=== PATIENT | female | born 1950 | race Caucasian/White ===

== ENCOUNTER → 2016-07-16 | Outpatient (REF) | payer MEDICARE ==
[~2016-07-16] MED LIST: ALEVE; GLUC500T; INSULIN; LABE100T2; POTA20TA2; PRIL40CA; PRIN5TAB; magnesium oxide
[2016-07-16 19:12] LABS: FERRITIN 49 NG/ML (8-252); PERCENT SATURATION 18.5 % (13.2-37.4); TOTAL IRON BINDING CAPACITY 383 UG/DL (250-450); TOTAL PROTEIN 6.8 GM/DL (6.4-8.2)
[2016-07-20 11:56] LABS: ALBUMIN % 60.9 % (55.8-66.1)
[2016-07-20 11:57] LABS: ALBUMIN 4.14 GM/DL (3.29-5.55)
== END ==
LOC: M LAB REF 17:03
PROVIDERS: ATTEND Internal Medicine Nephrology
DX: D50.9 Iron deficiency anemia, unspecified (principal); E83.52 Hypercalcemia

== ENCOUNTER → 2016-07-23 | Outpatient (REF) | payer MEDICARE | LOC: M LABDRAW1 11:47 | PROVIDERS: ATTEND Internal Medicine Nephrology | DX: D50.9 Iron deficiency anemia, unspecified (principal); E83.52 Hypercalcemia ==

== ENCOUNTER → 2016-07-27 | Outpatient (CLI) | payer MEDICARE ==
--- NOTE | 2016-07-27 13:47 | REP ---
BILATERAL RENAL ULTRASOUND COMPLETE: 07/27/2016. Comparison: CT with contrast 07/31/2010. Clinical history: Chronic kidney disease stage III moderate, type 2 diabetes. Hypercalcemia. Findings: The pre-void bladder volume measurement is 60 ml measuring 5.5 x 5.9 x 4.0 cm diameter. Ureteral jets could not be observed. No gross abnormality. Right kidney 9.6 x 5.6 x 4.8 cm. Cortical thinning is noted but cortical echogenicity normal. There is sinus lipomatosis. No hydronephrosis, hydroureter, stone, mass or cyst. Some calcified renal vessels noted. The left kidney showed a column of Marco A. It measures 9.9 x 4.5 x 4.3 cm and has normal cortical echogenicity and thickness. Some lobulations of the cortical contour noted. Sinus lipomatosis without hydroureter or hydronephrosis. No mass, cyst or stone. There were calcifications in artery vessels. The subcapsular hematoma noted on the trauma CT 6 years ago is resolved with some minimal cortical atrophy and lobation as a result. Impression: 1. Bilateral thinning of the cortex and sinus lipomatosis with mild renal atrophy. Cortical echogenicity intact. 2. Small amount of cortical lobulation of the lateral aspect of the left kidney likely result of the subcapsular hematoma and trauma/laceration in the 2011 CT scan post trauma. 3. No hydronephrosis, hydroureter, stone, mass or cyst. 4. Bladder very limited in evaluation. Signed by Lavelle Merida MD 07/27/2016 05:41 P
--- NOTE | 2016-07-27 16:59 | REP ---
NUCLEAR PARATHYROID SCAN: 07/27/2016. Clinical history: Chronic kidney disease, stage III, hyperparathyroidism, possible parathyroid adenoma. Technique: The patient received 25.1 mCi of technetium 99m sestamibi with 15-minute anterior and bilateral oblique anterior images and three-hour delayed images in the same projections. Also SPECT imaging with axial, sagittal and coronal images sets reviewed for their tomographic sections as well as the raw data images on CINE display. Findings: Symmetric uptake of Sestamibi on the 15-minute images in the submandibular glands and bilateral thyroid lobes. On the delayed images, there is loss of most of the uptake in the thyroid except for the lower pole of the left lobe. Submandibular gland uptake is unchanged. The overall thyroid uptake is otherwise much diminished. The tomographic SPECT images and source images confirm. Impression: 1. Findings most consistent with a parathyroid adenoma showing persistent tracer uptake in the lower pole left lobe of the thyroid gland on delayed images. Signed by Lavelle Merida MD 07/27/2016 05:50 P
== END ==
LOC: M RAD 09:17
PROVIDERS: ATTEND Internal Medicine Nephrology
DX: E11.22 Type 2 diabetes mellitus with diabetic chronic kidney disease (principal); N18.3 Chronic kidney disease, stage 3 (moderate); E21.2 Other hyperparathyroidism; N28.9 Disorder of kidney and ureter, unspecified
CPT/HCPCS: 76775; 78070; 78803; A9500

== ENCOUNTER → 2016-08-20 | Outpatient (REF) | payer MEDICARE ==
[2016-08-20 12:00] LABS: ALBUMIN 3.5 GM/DL (3.2-5.2); ALBUMIN/GLOBULIN RATIO 1.21 (1.00-1.93); ALKALINE PHOSPHATASE 40 U/L (45-117); ALT/SGPT 19 U/L (12-78); ANION GAP 5 MEQ/L (8-16); AST/SGOT 12 U/L (15-37); BILIRUBIN,TOTAL 0.3 MG/DL (0.2-1.0); BLOOD UREA NITROGEN 25 MG/DL (7-18); CALCIUM LEVEL 10.2 MG/DL (8.8-10.2); CARBON DIOXIDE LEVEL 33 MEQ/L (21-32); CHLORIDE LEVEL 105 MEQ/L (98-107); CREATININE FOR GFR 0.95 MG/DL (0.55-1.02); GLOMERULAR FILTRATION RATE > 60.0 (>45); GLUCOSE, FASTING 105 MG/DL (80-110); POTASSIUM SERUM 4.6 MEQ/L (3.5-5.1); SODIUM LEVEL 143 MEQ/L (136-145); TOTAL PROTEIN 6.4 GM/DL (6.4-8.2)
== END ==
LOC: M SFHCPLAZ 10:19
PROVIDERS: ATTEND Nurse Practitioner Family
DX: I10 Essential (primary) hypertension (principal); E55.9 Vitamin D deficiency, unspecified

== ENCOUNTER 2016-12-16 09:50 | Day surgery (SDC) | payer MEDICARE ==
[~2016-12-16] VITALS: Ht 152.4 cm; Wt 70.3 kg
[~2016-12-16 09:50] MED LIST changes: +ACETAMINOPHEN 325 MG TAB PO PRN; +ASPI81TA85 PO; +ATEN25TA PO; +BSS with VANC/TOB/EPI for EYE CASES IR ONE; +CEFUROXIME 1MG/0.1ML INTRACAMERAL INJ As Ordered ONE; +CINA30TA PO; +CYCLOPENTOLATE 2% OPHTH SOLN 2ML BTL OD ONE; +GLIM2TAB PO; +HEALON DUET (HEALON 10MG/ML 0.55ML & HEALON ENDOCOAT 30MG/ML 0.85ML) As Ordered ONE; +LIDOCAINE 1% SDV 5 ML VIAL As Ordered ONE; +LIDOCAINE 3.5 % 1ML OPHTH TOPICAL GEL OU ONE; +LISI-538 PO; +MAGN64TASA PO; +METF10004 PO; +OFLOXACIN 0.3 % (OCUFLOX) OPTH SOL 5ML OD ONE; +PHENYLEPHRINE 2.5% OPHTH SOL 2ML OD ONE; +POVIDONE-IODINE 5% OPHTH PREP SOL 30ML As Ordered ONE; +PROPARACAINE 0.5% OPHTH SOL 15ML OD PRN; +SIMV40TA2 PO; +TRAD5TAB PO; +TROPICAMIDE 1% OPHTH SOLN 2ML OD ONE
[2016-12-16] MEDS ORDERED: LR 1,000 ML IV ONE (10:15)
[2016-12-16] MEDS ORDERED: LIDOCAINE 1% MDV 20ML VIAL SC PRN (10:30)
[2016-12-16] MEDS ORDERED: MIDAZOLAM INJ 2 MG/2 ML VIAL (J2250) As Ordered ONE (11:06)
[2016-12-16] MEDS ORDERED: fentaNYL 100 MCG/2 ML INJECTION (J3010) As Ordered ONE (11:07)
[2016-12-16] MEDS ORDERED: TRIAMCINOLONE PRES FR 40 MG/ML 1ML(TRIESENCE)(OR EYE ONLY)(J3300 PER 1MG) As Ordered ONE (11:36)
[2016-12-16] MEDS ORDERED: MOXIFLOXACIN IN BSS 0.25MG/0.25ML INTRACAMERAL INJ (OR EYE ONLY)(J2280) As Ordered ONE (11:36)
[2016-12-16] MEDS ORDERED: BALANCED SALT IRRIGATION SOLUTION 500ML BAG (FOR OR EYE MACHINE) As Ordered ONE (11:45)
[2016-12-16] MEDS ORDERED: ACETYLCHOLINE OPHTH SOLN 1% 2ML (MIOCHOL-E) As Ordered ONE (11:48)
[2016-12-16] MEDS ORDERED: KETOROLAC 0.5% OPHTH SOLN OD ONE (12:30)
[2016-12-16] MEDS ORDERED: TRIMETHOBENZAMIDE 300 MG CAP PO PRN (12:30)
[2016-12-16] MEDS ORDERED: AcetaZOLAMIDE 500 MG ER CAP PO ONE (12:30)
[2016-12-16 12:55] VITALS: BP 189/79
--- NOTE | 2016-12-18 10:08 | RO ---
DATE OF PROCEDURE: 12/16/2016 PREPROCEDURE DIAGNOSIS: POSTPROCEDURE DIAGNOSIS: PROCEDURE: Femtosecond laser with phacoemulsification intraocular lens implantation and anterior vitrectomy. Placement of the Malyugin ring. SURGEON: Dr. Bren Allred. COURT SPECIALIST: None. ANESTHESIA: DESCRIPTION OF PROCEDURE: The patient was first brought to the laser room after the eye was prepped and draped. Patient interface was placed and after adequate suction, the laser was activated for the OCT images. After the images were reviewed, the laser was activated and the capsulorrhexis lens fragmentation primary and secondary corneal incisions and arcuate incisions were made according to plan. After the above, the suction was released. Patient interface removed and the patient was brought to the operating room and laid in the supine position. The eye was prepped and draped in a sterile fashion for ophthalmic surgery and a lid speculum was placed. All the incisions were opened including the arcuate primary and secondary incisions. Entocort was injected into the anterior chamber and the capsulorrhexis removed. The phacoemulsification was then started and patient's pupil constricted. At this point using the Healon to separate the capsule and the iris, the Malyugin ring 7 mm was placed without any complications. It was noted the patient's cataract was 4+ sclerotic. Even after the femtosecond laser it was very difficult to divide the lens and during the division it was noted that part of the lens had tilted posteriorly at this time. The phacoemulsification was stopped. An attempt was made to elevate the nucleus into the anterior chamber but this was not successful. After partial phacoemulsification a chunk of the nucleus was noted to be hanging in the anterior vitreous. At this point, it was decided to do a partial anterior vitrectomy and place the [id number] power, 18 diopter in the sulcus. This ws done without an effort and a #10-0 nylon suture was used to close the clear corneal incision after aspiration of the viscoelastic. Miochol was used and the pupil was nice and round. The case was discussed in great detail with the patient as it was even before the surgery. The lid speculum was removed before the patient was sent to the recovery room. The patient was then referred to the Retinal Vitreous for evaluation and treatment.
== END 2016-12-16 12:56 | disposition home or self-care (01) ==
LOC: M SDC 09:50
PROVIDERS: ATTEND Ophthalmology
DX: H25.9 Unspecified age-related cataract (principal); E11.9 Type 2 diabetes mellitus without complications; I10 Essential (primary) hypertension; E78.5 Hyperlipidemia, unspecified; E21.3 Hyperparathyroidism, unspecified; Z87.891 Personal history of nicotine dependence; Z79.82 Long term (current) use of aspirin; Z79.899 Other long term (current) drug therapy
CPT/HCPCS: 66982; J2250; J2280; J3010; J3300; V2632

== ENCOUNTER 2017-07-07 09:48 | Day surgery (SDC) | payer MEDICARE ==
[~2017-07-07 09:48] MED LIST changes: +ACETAMINOPHEN 325 MG TAB PO; -ACETAMINOPHEN 325 MG TAB PO PRN; -ALEVE; -ASPI81TA85 PO; -ATEN25TA PO; -BSS with VANC/TOB/EPI for EYE CASES IR ONE; -CEFUROXIME 1MG/0.1ML INTRACAMERAL INJ As Ordered ONE; -CINA30TA PO; -CYCLOPENTOLATE 2% OPHTH SOLN 2ML BTL OD ONE; -GLIM2TAB PO; -GLUC500T; -HEALON DUET (HEALON 10MG/ML 0.55ML & HEALON ENDOCOAT 30MG/ML 0.85ML) As Ordered ONE; -INSULIN; -LABE100T2; -LIDOCAINE 1% SDV 5 ML VIAL As Ordered ONE; -LIDOCAINE 3.5 % 1ML OPHTH TOPICAL GEL OU ONE; -LISI-538 PO; -MAGN64TASA PO; -METF10004 PO; -OFLOXACIN 0.3 % (OCUFLOX) OPTH SOL 5ML OD ONE; -PHENYLEPHRINE 2.5% OPHTH SOL 2ML OD ONE; +PHENYLEPHRINE HCL 10 % OPHTH. SOL 5ML OS; -POTA20TA2; -POVIDONE-IODINE 5% OPHTH PREP SOL 30ML As Ordered ONE; -PRIL40CA; -PRIN5TAB; -PROPARACAINE 0.5% OPHTH SOL 15ML OD PRN; +PROPARACAINE 0.5% OPHTH SOL 15ML OS; -SIMV40TA2 PO; -TRAD5TAB PO; -TROPICAMIDE 1% OPHTH SOLN 2ML OD ONE; -magnesium oxide
[2017-07-07] MEDS: CYCLOPENTOLATE 2% OPHTH SOLN 2ML BTL OS (10:05)
[2017-07-07] MEDS: LIDOCAINE 3.5 % 1ML OPHTH TOPICAL GEL OU (10:05)
[2017-07-07] MEDS: PHENYLEPHRINE 2.5% OPHTH SOL 2ML OS (10:05)
[2017-07-07] MEDS: TROPICAMIDE 1% OPHTH SOLN 2ML OS (10:10)
[2017-07-07] MEDS ORDERED: LIDOCAINE 1% MDV 20ML VIAL SQ (10:15)
[2017-07-07] MEDS: OFLOXACIN 0.3 % (OCUFLOX) OPTH SOL 5ML OS (10:15)
[2017-07-07] MEDS ORDERED: fentaNYL 100 MCG/2 ML INJECTION (J3010) As Ordered (10:25)
[2017-07-07] MEDS ORDERED: MIDAZOLAM INJ 2 MG/2 ML VIAL (J2250) As Ordered (10:25)
[2017-07-07 10:30] LABS: BEDSIDE GLUCOSE 83 MG/DL (80-115)
[2017-07-07] MEDS: POVIDONE-IODINE 5% OPHTH PREP SOL 30ML As Ordered (11:39)
[2017-07-07] MEDS: BSS with VANC/TOB/EPI for EYE CASES IR (11:43)
[2017-07-07] MEDS: MOXIFLOXACIN IN BSS 0.25MG/0.25ML INTRACAMERAL INJ (OR EYE ONLY)(J2280) As Ordered (11:43)
[2017-07-07] MEDS: LIDOCAINE 1% SDV 5 ML VIAL As Ordered (11:43)
[2017-07-07] MEDS: HEALON DUET (HEALON 10MG/ML 0.55ML & HEALON ENDOCOAT 30MG/ML 0.85ML) As Ordered (11:43)
[2017-07-07] MEDS: TRIAMCINOLONE PRES FR 40 MG/ML 1ML(TRIESENCE)(OR EYE ONLY)(J3300 PER 1MG) As Ordered (11:43)
[2017-07-07] MEDS ORDERED: KETOROLAC 0.5% OPHTH SOLN OS (12:00)
[2017-07-07] MEDS ORDERED: TRIMETHOBENZAMIDE 300 MG CAP PO (12:00)
[2017-07-07] MEDS: AcetaZOLAMIDE 500 MG ER CAP PO (12:30)
== END 2017-07-07 12:46 | disposition home or self-care (01) ==
LOC: M SDC 09:48
DX: H26.9 Unspecified cataract (principal); E78.00 Pure hypercholesterolemia, unspecified; E11.9 Type 2 diabetes mellitus without complications; I10 Essential (primary) hypertension; Z79.899 Other long term (current) drug therapy; Z79.84 Long term (current) use of oral hypoglycemic drugs; Z79.82 Long term (current) use of aspirin; Z87.81 Personal history of (healed) traumatic fracture
CPT/HCPCS: 66984

== ENCOUNTER → 2018-03-11 | Outpatient (CLI) | payer MEDICARE ==
[2018-03-11 12:47] LABS: CHOLESTEROL LEVEL 182 MG/DL (<200); HDL CHOLESTEROL 56 MG/DL (>40); LDL CHOLESTEROL 100 MG/DL (<100); NON-HDL-C 126 MG/DL; TRIGLYCERIDES LEVEL 129 MG/DL (<150)
== END ==
LOC: M WUC 09:13
DX: E78.00 Pure hypercholesterolemia, unspecified (principal)
CPT/HCPCS: 80061

== ENCOUNTER → 2019-02-17 | Outpatient (CLI) | payer MEDICARE ==
[~2019-02-17] MED LIST changes: -ACETAMINOPHEN 325 MG TAB PO; +ALEVE; +AMLO5TAB6 PO; +ASPI81TA85 PO; +ATEN25TA PO; +CINA30TA4 PO; +GLIM2TAB2 PO; +GLUC500T; +INSULIN; +LABE100T2; +LISI-538 PO; +LOPR1TAB6 PO; +MAGN64TASA PO; +METF10004 PO; +MULT1TAB10 PO; +ONGL1TAB9 PO; -PHENYLEPHRINE HCL 10 % OPHTH. SOL 5ML OS; +POTA20TA2; +PRIL40CA; +PRIN5TAB; -PROPARACAINE 0.5% OPHTH SOL 15ML OS; +SIMV40TA2 PO; +TRAD5TAB PO; +magnesium oxide
[2019-02-17 11:46] LABS: ALBUMIN 3.5 GM/DL (3.2-5.2); BILIRUBIN,TOTAL 0.3 MG/DL (0.2-1.0); CHOLESTEROL RISK RATIO 2.89 (<5); GLOMERULAR FILTRATION RATE 58.7 (>45); POTASSIUM SERUM 4.8 MEQ/L (3.5-5.1); TOTAL PROTEIN 6.5 GM/DL (6.4-8.2)
== END ==
LOC: M WUC 08:45
PROVIDERS: ATTEND Nurse Practitioner Family
DX: E78.2 Mixed hyperlipidemia (principal)

== ENCOUNTER → 2020-01-26 | Outpatient (CLI) | payer MEDICARE ==
[~2020-01-26] MED LIST changes: +AMLO1TAB24 PO; -AMLO5TAB6 PO; -ASPI81TA85 PO; +ASPI81TA86 PO; -GLIM2TAB2 PO; +GLIM2TAB4 PO; -SIMV40TA2 PO; +SIMV40TA20 PO
[2020-01-26 12:10] LABS: ALBUMIN 3.4 GM/DL (3.2-5.2); ALT/SGPT 19 U/L (12-78); BILIRUBIN,TOTAL 0.4 MG/DL (0.2-1.0); BLOOD UREA NITROGEN 19 MG/DL (7-18); CARBON DIOXIDE LEVEL 30 MEQ/L (21-32); CHLORIDE LEVEL 106 MEQ/L (98-107); CHOLESTEROL LEVEL 197 MG/DL (<200); CHOLESTEROL RISK RATIO 3.177 (<5); CREATININE FOR GFR 0.94 MG/DL (0.55-1.30); GLOMERULAR FILTRATION RATE > 60.0 (>45); GLUCOSE, FASTING 154 MG/DL (70-100); HDL CHOLESTEROL 62 MG/DL (>40); LDL CHOLESTEROL 110 MG/DL (<100); NON-HDL-C 135 MG/DL; POTASSIUM SERUM 4.6 MEQ/L (3.5-5.1); SODIUM LEVEL 140 MEQ/L (136-145); TOTAL PROTEIN 6.4 GM/DL (6.4-8.2); TRIGLYCERIDES LEVEL 125 MG/DL (<150)
== END ==
LOC: M WUC 08:39
PROVIDERS: ATTEND Nurse Practitioner Family
DX: I12.9 Hypertensive chronic kidney disease with stage 1 through stage 4 chronic kidney disease, or unspecified chronic kidney disease (principal); E78.2 Mixed hyperlipidemia

== ENCOUNTER → 2020-09-05 | Outpatient (REF) | payer MEDICARE ==
[~2020-09-05] MED LIST changes: -LISI-538 PO; +LISI20TA33 PO
[2020-09-05 18:31] LABS: MALB URINE SIEMENS 7.3 MG/L
== END ==
LOC: M LAB REF 17:02
PROVIDERS: ATTEND Nurse Practitioner Family
DX: E11.9 Type 2 diabetes mellitus without complications (principal)

== ENCOUNTER → 2021-02-06 | Outpatient (CLI) | payer MEDICARE ==
[2021-02-06 13:55] LABS: ALBUMIN 3.4 GM/DL (3.2-5.2); BILIRUBIN,TOTAL 0.4 MG/DL (0.2-1.0); CALCIUM LEVEL 10.2 MG/DL (8.8-10.2); CHOLESTEROL RISK RATIO 3.366 (<5); CREATININE FOR GFR 1.02 MG/DL (0.55-1.30); POTASSIUM SERUM 4.5 MEQ/L (3.5-5.1); TOTAL PROTEIN 6.4 GM/DL (6.4-8.2)
== END ==
LOC: M WUC 09:02
PROVIDERS: ATTEND Nurse Practitioner Family
DX: E78.2 Mixed hyperlipidemia (principal); I12.9 Hypertensive chronic kidney disease with stage 1 through stage 4 chronic kidney disease, or unspecified chronic kidney disease; N18.9 Chronic kidney disease, unspecified

== ENCOUNTER → 2021-04-30 | Outpatient (REF) | payer MEDICARE | LOC: M LAB REF 16:59 | PROVIDERS: ATTEND Nurse Practitioner Family | DX: N18.32 Chronic kidney disease, stage 3b (principal) ==

== ENCOUNTER → 2021-08-18 | Outpatient (CLI) | payer MEDICARE ==
[2021-08-18 11:08] LABS: CALCIUM LEVEL 10.8 MG/DL (8.8-10.2); CREATININE FOR GFR 1.09 MG/DL (0.55-1.30); GLOMERULAR FILTRATION RATE 52.7 (>39); POTASSIUM SERUM 4.8 MEQ/L (3.5-5.1)
== END ==
LOC: M LAB 09:23
PROVIDERS: ATTEND Nurse Practitioner Family
DX: E11.22 Type 2 diabetes mellitus with diabetic chronic kidney disease (principal); N18.31 Chronic kidney disease, stage 3a

== ENCOUNTER → 2021-10-29 | Outpatient (REF) | payer MEDICARE ==
[2021-10-29 19:21] LABS: CREATININE, URINE 28.9 MG/DL; MALB URINE SIEMENS < 5.0 MG/L; MAU/CREAT RATIO 17.3 MCG/MG (0.0-30.0)
== END ==
LOC: M LAB REF 17:14
PROVIDERS: ATTEND Nurse Practitioner Family
DX: E11.9 Type 2 diabetes mellitus without complications (principal)

== ENCOUNTER → 2022-01-27 | Outpatient (CLI) | payer MEDICARE ==
[2022-01-27 11:50] LABS: CHOLESTEROL RISK RATIO 3.491 (<5)
== END ==
LOC: M WUC 08:42
PROVIDERS: ATTEND Nurse Practitioner Adult Health
DX: E78.2 Mixed hyperlipidemia (principal)

== ENCOUNTER → 2023-03-01 | Outpatient (CLI) | payer MEDICARE ==
[2023-03-01 10:07] LABS: THYROID STIMULATING HORMONE 1.325 uIU/ML (0.55-4.78)
[2023-03-01 10:09] LABS: ALBUMIN 3.3 G/DL (3.2-5.2); ALKALINE PHOSPHATASE 35 U/L (46-116); ALT/SGPT 15 U/L (7.0-40); AST/SGOT 10 U/L (<34); BILIRUBIN,TOTAL 0.3 MG/DL (0.3-1.2); BLOOD UREA NITROGEN 12 MG/DL (9-23); CALCIUM LEVEL 9.7 MG/DL (8.3-10.6); CARBON DIOXIDE LEVEL 28 MMOL/L (20-31); CHLORIDE LEVEL 106 MMOL/L (98-107); CREATININE FOR GFR 0.83 MG/DL (0.55-1.30); GLOMERULAR FILTRATION RATE > 60.0 (>39); GLUCOSE, FASTING 154 MG/DL (74-106); POTASSIUM SERUM 4.5 MMOL/L (3.5-5.1); SODIUM LEVEL 143 MMOL/L (136-145); TOTAL PROTEIN 5.9 G/DL (5.7-8.2)
[2023-03-01 10:20] LABS: HEMOGLOBIN A1c 7.4 % (4.0-6.0)
== END ==
LOC: M WUC 08:22
PROVIDERS: ATTEND Nurse Practitioner Adult Health
DX: E11.22 Type 2 diabetes mellitus with diabetic chronic kidney disease (principal); E55.9 Vitamin D deficiency, unspecified; N18.31 Chronic kidney disease, stage 3a

== ENCOUNTER → 2023-08-30 | Outpatient (CLI) | payer MEDICARE ==
[2023-08-30 10:48] LABS: HEMATOCRIT 38.3 % (36.0-47.0); HEMOGLOBIN 11.6 g/dl (12.0-15.5); MEAN CORPUSCULAR HEMOGLOBIN 26.2 pg (27.0-33.0); MEAN CORPUSCULAR HGB CONC 30.3 g/dl (32.0-36.5); MEAN CORPUSCULAR VOLUME 86.7 fl (80.0-96.0); PLATELET COUNT, AUTOMATED 413 10^3/uL (150-450); RED BLOOD COUNT 4.42 10^6/uL (4.00-5.40); WHITE BLOOD COUNT 7.5 10^3/uL (4.0-10.0)
[2023-08-30 10:52] LABS: ALBUMIN 3.5 G/DL (3.2-5.2); BILIRUBIN,TOTAL 0.3 MG/DL (0.3-1.2); CALCIUM LEVEL 10.1 MG/DL (8.3-10.6); CHOLESTEROL RISK RATIO 2.42 (<5); CREATININE FOR GFR 1.07 MG/DL (0.55-1.30); GLOMERULAR FILTRATION RATE 53.5 (>39); HDL CHOLESTEROL 52.4 MG/DL (>40); LDL CHOLESTEROL 53.6 MG/DL (<100); NON-HDL-C 74.6 MG/DL; POTASSIUM SERUM 4.8 MMOL/L (3.5-5.1); TOTAL PROTEIN 6.1 G/DL (5.7-8.2)
[2023-08-30 10:56] LABS: FERRITIN 4.9 NG/ML (7.3-270.7)
[2023-08-30 11:59] LABS: HEMOGLOBIN A1c 6.8 % (4.0-6.0)
== END ==
LOC: M WUC 08:19
PROVIDERS: ATTEND Nurse Practitioner Adult Health
DX: E11.22 Type 2 diabetes mellitus with diabetic chronic kidney disease (principal); D50.9 Iron deficiency anemia, unspecified; E78.2 Mixed hyperlipidemia; N18.31 Chronic kidney disease, stage 3a

== ENCOUNTER → 2024-01-18 | Outpatient (REF) | payer MEDICARE ==
[2024-01-20 15:02] LABS: UPEP CREATININE 50 mg/dL (20-275); UPEP TOTAL PROTEIN < 4 mg/dL (5-24)
[2024-01-20 16:06] LABS: PROTEIN, TOTAL SO 6.7 g/dL (6.1-8.1)
== END ==
LOC: M LAB REF 17:25
PROVIDERS: ATTEND Nurse Practitioner Family
DX: E83.52 Hypercalcemia (principal)

== ENCOUNTER → 2024-09-14 | Outpatient (REF) | payer MEDICARE ==
[2024-09-14 13:45] LABS: ALBUMIN 3.5 G/DL (3.2-5.2); BILIRUBIN,TOTAL 0.3 MG/DL (0.3-1.2); CALCIUM LEVEL 9.9 MG/DL (8.3-10.6); CHOLESTEROL RISK RATIO 2.73 (<5); CREATININE FOR GFR 0.96 MG/DL (0.55-1.30); GLOMERULAR FILTRATION RATE 62.1 (>39); HDL CHOLESTEROL 63.3 MG/DL (>40); LDL CHOLESTEROL 84.3 MG/DL (<100); NON-HDL-C 109.7 MG/DL; POTASSIUM SERUM 4.9 MMOL/L (3.5-5.1); TOTAL PROTEIN 6.2 G/DL (5.7-8.2)
[2024-09-14 13:56] LABS: HEMOGLOBIN A1c 6.6 % (4.0-6.0)
== END ==
LOC: M LABWUC 12:12
PROVIDERS: ATTEND Nurse Practitioner Adult Health
DX: E78.2 Mixed hyperlipidemia (principal); E11.22 Type 2 diabetes mellitus with diabetic chronic kidney disease